=== PATIENT | male | born 1935 | race Two or more races ===

== ENCOUNTER 2021-12-05 06:44 | Observation (INO) | payer OTHER, MEDICAID ==
[~2021-12-05] VITALS: Ht 170.2 cm; Wt 82.1 kg
[~2021-12-05 06:44] MED LIST: APIX5TAB PO; CHOL20007 PO; LISI2.5T47 PO; METO25TA5 PO; MULT-195 OR
[2021-12-05] MEDS ORDERED: MIDAZOLAM HCL 2MG/2ML 2ml VIAL (1mg/ml) ONE (08:09)
[2021-12-05] MEDS ORDERED: fentaNYL CITRATE 100 MCG/2 ML VL ONE (08:09)
[2021-12-05] MEDS ORDERED: ceFAZolin 1GM VL ONE (08:10)
[2021-12-05] MEDS ORDERED: VANCOMYCIN 1GM/250ML 250 ML IV ONE (08:11)
[2021-12-05] MEDS ORDERED: VANCOMYCIN HCL 1000 MG VL ONE ×3 (08:12→08:33)
[2021-12-05] MEDS ORDERED: LIDOCAINE 2%HCL (LOCAL ANESTH.) INJ 20ML MDV ONE (08:15)
[2021-12-05] MEDS ORDERED: IODIXANOL 320MG/ML 100ML BTL IV ONE (08:18)
[2021-12-05] MEDS ORDERED: diphenhdrAMINE HCL 50 MG/1 ML VL ONE (08:53)
[2021-12-05] MEDS ORDERED: ATROPINE SULF 1 MG/10ml SYR ONE (09:17)
[2021-12-05] MEDS ORDERED: GELATIN 1 SPONGE SIZE 50 TOP ONE (09:38)
[2021-12-05] MEDS ORDERED: MORPHINE SULFATE INJECTION 2 MG/ML SYRG IV PRN (10:00)
[2021-12-05] MEDS ORDERED: NITROGLYCERIN 0.4 MG SL TAB SL PRN (10:00)
[2021-12-05] MEDS ORDERED: LISINOPRIL 5 MG TAB PO PRN (12:30)
[2021-12-05] MEDS: DOXYCYCLINE 100MG/250ML 250 ML IV SCH ×2 (13:53→22:46)
[2021-12-05 17:03] VITALS: BP 154/74
[2021-12-05 22:00] VITALS: BP 145/79
[2021-12-05] MEDS: VANCOMYCIN 1GM/250ML 250 ML IV SCH (22:46)
[2021-12-06 05:22] VITALS: BP 152/80
[2021-12-06 09:00] VITALS: BP 146/70
[2021-12-06] MEDS: VANCOMYCIN 1GM/250ML 250 ML IV SCH (09:13)
[2021-12-06] MEDS ORDERED: METOPROLOL TARTRATE 25 MG TAB PO SCH (10:00)
[2021-12-06] MEDS ORDERED: MULTIPLE VITAMINS W/ MINERALS TAB PO SCH (10:00)
[2021-12-06] MEDS: DOXYCYCLINE 100MG/250ML 250 ML IV SCH (10:38)
[2021-12-06] MEDS ORDERED: DOXY-346 PO (12:11)
[2021-12-06 12:45] VITALS: BP 149/84
[2021-12-06 12:46] VITALS: BP 149/84
== END 2021-12-06 15:30 | disposition home or self-care (01) ==
LOC: CATH 06:44 → OVERFLOW 09:59 → TELE-CENTR 16:49
PROVIDERS: ADMIT Specialist; ATTEND Specialist
DX: I49.5 Sick sinus syndrome (principal); I48.0 Paroxysmal atrial fibrillation; I10 Essential (primary) hypertension; Z20.822 Contact with and (suspected) exposure to COVID-19
CPT/HCPCS: 33208; 71045; 93005; 96365; 96366; 96368; 99285; C1785; C1892; C1898; G0378; J1200; J2250; J3010; J3370; J3490; J7030; Q9967; U0003; 99152; 99153; J0690

== ENCOUNTER 2022-09-18 11:27 | Emergency (ER) | payer OTHER, MEDICAID ==
[~2022-09-18] VITALS: Ht 170.2 cm; Wt 72.7 kg
[~2022-09-18 11:27] MED LIST changes: +DOXY-346 PO
[2022-09-18] MEDS ORDERED: cloNIDine HCL 0.1 MG TAB ONE (11:49)
[2022-09-18] MEDS ORDERED: cloNIDine HCL 0.1 MG TAB PO ONE (12:00)
[2022-09-18 14:00] VITALS: BP 98/61
== END 2022-09-18 15:12 | disposition home or self-care (01) ==
LOC: EDBD 11:27 → ER 11:27
DX: I10 Essential (primary) hypertension (principal); Z86.73 Personal history of transient ischemic attack (TIA), and cerebral infarction without residual deficits; Z98.890 Other specified postprocedural states
CPT/HCPCS: 93005